=== PATIENT | male | born 1970 | race Caucasian/White ===

== ENCOUNTER 2022-10-01 10:35 | Inpatient (IN) | payer OTHER ==
[2022-10-01 11:18] VITALS: BMI 25.0
[2022-10-01] MEDS ORDERED: NALOXONE HCL (KLOXXADO) 8 MG SPRAY NS PRN (13:13)
[2022-10-01] MEDS ORDERED: BENZOCAINE/MENTHOL (CHLORASEPTIC ) LOZENGE MM PRN (13:13)
[2022-10-01] MEDS ORDERED: guaiFENesin 600 MG TABLET.ER (FP) PO PRN (13:13)
[2022-10-01] MEDS ORDERED: ONDANSETRON *ODT* 4 MG TABLET SL PRN (13:13)
[2022-10-01] MEDS ORDERED: MAG HYDROX/AL HYDROX/SIMETH 30 ML UNIT-DOSE CUP PO PRN (13:13)
[2022-10-01] MEDS ORDERED: NICOTINE 10 MG CARTRIDGE (INHALER) IH PRN (13:13)
[2022-10-01] MEDS ORDERED: ACETAMINOPHEN 325 MG TABLET (FP) PO PRN (13:13)
[2022-10-01] MEDS ORDERED: chlordiazePOXIDE HCL 25 MG CAPSULE PO PRN (13:13)
[2022-10-01] MEDS ORDERED: BENZONATATE 200 MG CAPSULE PO PRN (13:13)
[2022-10-01] MEDS ORDERED: MAGNESIUM HYDROX 2400MG/30ML ORAL SUSPENSION 30 ML CUP PO PRN (13:13)
[2022-10-01] MEDS ORDERED: DICYCLOMINE HCL 10 MG CAPSULE PO PRN (13:13)
[2022-10-01] MEDS ORDERED: LOPERAMIDE HCL 2 MG CAPSULE PO PRN (13:13)
[2022-10-01] MEDS ORDERED: IBUPROFEN 600 MG TABLET (FP) PO PRN (13:13)
[2022-10-01] MEDS ORDERED: POLYETHYLENE GLYCOL (HEALTHYLAX) 3350 17 GM PACKET PO PRN (13:13)
[2022-10-01] MEDS ORDERED: BISMUTH SUBSALICYLATE 524 MG/30 ML PO PRN (13:13)
[2022-10-01] MEDS ORDERED: NALOXONE HCL 0.4 MG/ML VIAL IM PRN (13:13)
[2022-10-01] MEDS ORDERED: IBUPROFEN 400 MG TABLET (FP) PO PRN (13:13)
[2022-10-01] MEDS: chlordiazePOXIDE HCL 25 MG CAPSULE PO SCH ×2 (17:51→22:39)
[2022-10-01] MEDS: THIAMINE HCL 100 MG TABLET (FP) PO SCH (22:39)
[2022-10-01] MEDS: MELATONIN 5 MG TABLETS PO SCH (22:39)
[2022-10-02] MEDS: chlordiazePOXIDE HCL 25 MG CAPSULE PO SCH ×4 (05:50→22:31)
[2022-10-02] MEDS: LEVOTHYROXINE NA 100 MCG TABLET (FP) PO SCH (05:50)
[2022-10-02] MEDS ORDERED: LEVOTHYROXINE SODIUM 150 MCG PO SCH (06:00)
[2022-10-02] MEDS ORDERED: methaDONE HCL 40 MG DISPERSABLE TABLET PO ONE (06:00)
[2022-10-02] MEDS: PRENATAL VITAMINS W/ FOLIC ACID TABLET (FP) PO SCH (10:52)
[2022-10-02] MEDS: NICOTINE 14 MG/24 HOURS TOPICAL PATCH TD SCH (10:54)
[2022-10-02 11:12] LABS: ALBUMIN 2.9 g/dl (3.4-5.0); BLOOD UREA NITROGEN 15.2 mg/dL (7-18); CALCIUM 9.1 mg/dL (8.5-10.1)
[2022-10-02 11:15] LABS: CREATININE 0.7 mg/dL (0.55-1.3); HEMATOCRIT 37.9 % (35.4-49); HEMOGLOBIN 12.9 GM/dL (11.7-16.9); MEAN PLT VOLUME 9.1 fl (7.5-11.1); PLATELET COUNT 198 10^3/uL (134-434); RBC 4.16 M/mm3 (4.00-5.60); RDW 12.5 % (11.9-15.9); WHITE BLOOD COUNT 5.1 K/mm3 (4.0-10.0)
[2022-10-02 11:16] LABS: TOT PROT 5.8 g/dl (6.4-8.2)
[2022-10-02 11:18] LABS: BILIRUBIN,TOTAL 0.3 mg/dL (0.2-1)
[2022-10-02] MEDS: SERTRALINE HCL 50 MG TABLET (FP) PO SCH (12:24)
[2022-10-02] MEDS: THIAMINE HCL 100 MG TABLET (FP) PO SCH (22:30)
[2022-10-02] MEDS: MELATONIN 5 MG TABLETS PO SCH (22:31)
[2022-10-02] MEDS: ARIPiprazole 10 MG TABLET PO SCH (22:31)
[2022-10-03] MEDS: chlordiazePOXIDE HCL 25 MG CAPSULE PO SCH ×4 (05:49→22:25)
[2022-10-03] MEDS: LEVOTHYROXINE NA 100 MCG TABLET (FP) PO SCH (06:29)
[2022-10-03] MEDS: SERTRALINE HCL 50 MG TABLET (FP) PO SCH (11:10)
[2022-10-03] MEDS: NICOTINE 14 MG/24 HOURS TOPICAL PATCH TD SCH (11:11)
[2022-10-03] MEDS: PRENATAL VITAMINS W/ FOLIC ACID TABLET (FP) PO SCH (11:11)
[2022-10-03] MEDS: methaDONE HCL 40 MG DISPERSABLE TABLET PO SCH (11:25)
[2022-10-03] MEDS: NICOTINE POLACRILEX 2 MG GUM BUC PRN ×2 (13:57→22:28)
[2022-10-03] MEDS: ARIPiprazole 10 MG TABLET PO SCH (22:24)
[2022-10-03] MEDS: THIAMINE HCL 100 MG TABLET (FP) PO SCH (22:24)
[2022-10-03] MEDS: MELATONIN 5 MG TABLETS PO SCH (22:25)
[2022-10-04] MEDS ORDERED: chlordiazePOXIDE HCL 10 MG CAPSULE PO PRN
[2022-10-04] MEDS: methaDONE HCL 40 MG DISPERSABLE TABLET PO SCH (05:53)
[2022-10-04] MEDS: chlordiazePOXIDE HCL 10 MG CAPSULE PO SCH ×4 (05:53→22:45)
[2022-10-04] MEDS: LEVOTHYROXINE NA 100 MCG TABLET (FP) PO SCH (05:58)
[2022-10-04] MEDS: NICOTINE 14 MG/24 HOURS TOPICAL PATCH TD SCH ×2 (10:25→10:32)
[2022-10-04] MEDS: PRENATAL VITAMINS W/ FOLIC ACID TABLET (FP) PO SCH (10:25)
[2022-10-04] MEDS: SERTRALINE HCL 50 MG TABLET (FP) PO SCH (10:26)
[2022-10-04] MEDS: NICOTINE POLACRILEX 2 MG GUM BUC PRN (10:29)
[2022-10-04] MEDS: MELATONIN 5 MG TABLETS PO SCH (22:44)
[2022-10-04] MEDS: hydrOXYzine PAMOATE 25 MG CAPSULE (FP) PO PRN (22:44)
[2022-10-04] MEDS: ARIPiprazole 10 MG TABLET PO SCH (22:45)
[2022-10-04] MEDS: THIAMINE HCL 100 MG TABLET (FP) PO SCH (22:45)
[2022-10-04] MEDS: METHOCARBAMOL 500 MG TABLET PO PRN (22:45)
[2022-10-05] MEDS: chlordiazePOXIDE HCL 10 MG CAPSULE PO SCH ×2 (06:03→18:50)
[2022-10-05] MEDS: methaDONE HCL 40 MG DISPERSABLE TABLET PO SCH (06:04)
[2022-10-05] MEDS: LEVOTHYROXINE NA 100 MCG TABLET (FP) PO SCH (06:09)
[2022-10-05] MEDS: PRENATAL VITAMINS W/ FOLIC ACID TABLET (FP) PO SCH (10:18)
[2022-10-05] MEDS: SERTRALINE HCL 50 MG TABLET (FP) PO SCH (10:18)
[2022-10-05] MEDS: NICOTINE 14 MG/24 HOURS TOPICAL PATCH TD SCH (10:19)
[2022-10-05] MEDS: METHOCARBAMOL 500 MG TABLET PO PRN (22:20)
[2022-10-05] MEDS: MELATONIN 5 MG TABLETS PO SCH (22:20)
[2022-10-05] MEDS: hydrOXYzine PAMOATE 25 MG CAPSULE (FP) PO PRN (22:20)
[2022-10-05] MEDS: ARIPiprazole 10 MG TABLET PO SCH (22:20)
[2022-10-05] MEDS: THIAMINE HCL 100 MG TABLET (FP) PO SCH (22:20)
[2022-10-06] MEDS ORDERED: chlordiazePOXIDE HCL 10 MG CAPSULE PO ONE (05:00)
[2022-10-06] MEDS: methaDONE HCL 40 MG DISPERSABLE TABLET PO SCH (05:48)
[2022-10-06] MEDS: LEVOTHYROXINE NA 100 MCG TABLET (FP) PO SCH (05:49)
[2022-10-06 06:20] VITALS: PULSE 63
[2022-10-06] MEDS: NICOTINE 14 MG/24 HOURS TOPICAL PATCH TD SCH (10:42)
[2022-10-06] MEDS: PRENATAL VITAMINS W/ FOLIC ACID TABLET (FP) PO SCH (10:42)
[2022-10-06] MEDS: SERTRALINE HCL 50 MG TABLET (FP) PO SCH (10:43)
[2022-10-06 11:30] VITALS: BP 110/60; RESP 18; TEMP 98.2
== END 2022-10-06 10:43 | disposition home or self-care (01) | DRG 773 ==
LOC: YASAS 10:35 → Y3N 13:36
PROVIDERS: ADMIT Allergy & Immunology; ATTEND Surgery
PROC: HZ2ZZZZ Detoxification Services for Substance Abuse Treatment (ICD-10-PCS; principal; 2022-10-01)
DX: F11.23 Opioid dependence with withdrawal (principal); F10.230 Alcohol dependence with withdrawal, uncomplicated; F17.210 Nicotine dependence, cigarettes, uncomplicated; F31.9 Bipolar disorder, unspecified; F25.9 Schizoaffective disorder, unspecified; E03.9 Hypothyroidism, unspecified; J45.20 Mild intermittent asthma, uncomplicated; M54.50 Low back pain, unspecified; G89.29 Other chronic pain; Z86.19 Personal history of other infectious and parasitic diseases
CPT/HCPCS: 36415; 80053; 82962; 84443; 85027; 86780; 87811; 93005; 93010; C9803-CS; U0003; U0005

== ENCOUNTER 2022-10-06 11:59 | Inpatient (IN) | payer OTHER ==
[2022-10-06 13:45] VITALS: BMI 26.9
[2022-10-06] MEDS ORDERED: guaiFENesin 600 MG TABLET.ER (FP) PO PRN (14:48)
[2022-10-06] MEDS ORDERED: BENZONATATE 200 MG CAPSULE PO PRN (14:48)
[2022-10-06] MEDS ORDERED: AMMONIUM LACTATE 12% LOTION 225 GM BOTTLE TP PRN (14:48)
[2022-10-06] MEDS ORDERED: POLYETHYLENE GLYCOL (HEALTHYLAX) 3350 17 GM PACKET PO PRN (14:48)
[2022-10-06] MEDS ORDERED: MAGNESIUM HYDROX 2400MG/30ML ORAL SUSPENSION 30 ML CUP PO PRN (14:48)
[2022-10-06] MEDS ORDERED: IBUPROFEN 400 MG TABLET (FP) PO PRN (14:48)
[2022-10-06] MEDS ORDERED: COLLOIDAL OATMEAL 1 BAR EACH TP PRN (14:48)
[2022-10-06] MEDS ORDERED: IBUPROFEN 600 MG TABLET (FP) PO PRN (14:48)
[2022-10-06] MEDS ORDERED: NALOXONE HCL 0.4 MG/ML VIAL IVPUSH PRN (14:48)
[2022-10-06] MEDS ORDERED: LOPERAMIDE HCL 2 MG CAPSULE PO PRN (14:48)
[2022-10-06] MEDS ORDERED: NALOXONE HCL (KLOXXADO) 8 MG SPRAY NS PRN (14:48)
[2022-10-06] MEDS ORDERED: METHOCARBAMOL 500 MG TABLET PO PRN (14:48)
[2022-10-06] MEDS ORDERED: hydrOXYzine PAMOATE 25 MG CAPSULE (FP) PO PRN (14:48)
[2022-10-06] MEDS ORDERED: BENZOCAINE/MENTHOL (CHLORASEPTIC ) LOZENGE MM PRN (14:48)
[2022-10-06] MEDS ORDERED: ACETAMINOPHEN 325 MG TABLET (FP) PO PRN (14:48)
[2022-10-06] MEDS: MELATONIN 5 MG TABLETS PO SCH (21:23)
[2022-10-06] MEDS: THIAMINE HCL 100 MG TABLET (FP) PO SCH (21:23)
[2022-10-06] MEDS: ARIPiprazole 10 MG TABLET PO SCH (21:24)
[2022-10-07] MEDS: methaDONE HCL 40 MG DISPERSABLE TABLET PO SCH (06:50)
[2022-10-07] MEDS ORDERED: LEVOTHYROXINE NA 150 MCG TABLET PO SCH (07:00)
[2022-10-07] MEDS ORDERED: LEVOTHYROXINE SODIUM 150 MCG PO SCH (07:00)
[2022-10-07] MEDS: LEVOTHYROXINE NA 75 MCG TABLET (FP) PO SCH (09:41)
[2022-10-07] MEDS: PRENATAL VITAMINS W/ FOLIC ACID TABLET (FP) PO SCH (09:41)
[2022-10-07] MEDS ORDERED: PATIENT'S OWN MEDICATION (NON-FORMULARY) (Sertraline Hcl [Sertraline Hcl] 100 MG Tablet) PO SCH (10:00)
[2022-10-07] MEDS ORDERED: methaDONE HCL 40 MG DISPERSABLE TABLET PO SCH (10:00)
[2022-10-07] MEDS ORDERED: SERTRALINE HCL 50 MG TABLET (FP) PO SCH (10:00)
[2022-10-07] MEDS: NICOTINE POLACRILEX 2 MG GUM BUC PRN (10:04)
[2022-10-07] MEDS: THIAMINE HCL 100 MG TABLET (FP) PO SCH (22:29)
[2022-10-07] MEDS: MELATONIN 5 MG TABLETS PO SCH (22:29)
[2022-10-07] MEDS: ARIPiprazole 10 MG TABLET PO SCH (22:29)
[2022-10-08] MEDS: methaDONE HCL 40 MG DISPERSABLE TABLET PO SCH (06:35)
[2022-10-08] MEDS: SERTRALINE HCL 50 MG TABLET (FP) PO SCH (06:35)
[2022-10-08] MEDS: LEVOTHYROXINE NA 75 MCG TABLET (FP) PO SCH (06:36)
[2022-10-08] MEDS: PRENATAL VITAMINS W/ FOLIC ACID TABLET (FP) PO SCH (10:01)
[2022-10-08] MEDS: NICOTINE POLACRILEX 2 MG GUM BUC PRN ×2 (12:58→18:38)
[2022-10-08] MEDS: ARIPiprazole 10 MG TABLET PO SCH (21:22)
[2022-10-08] MEDS: THIAMINE HCL 100 MG TABLET (FP) PO SCH (21:22)
[2022-10-08] MEDS: MELATONIN 5 MG TABLETS PO SCH (21:22)
[2022-10-09] MEDS: SERTRALINE HCL 50 MG TABLET (FP) PO SCH (06:58)
[2022-10-09] MEDS: methaDONE HCL 40 MG DISPERSABLE TABLET PO SCH (06:58)
[2022-10-09] MEDS: LEVOTHYROXINE NA 75 MCG TABLET (FP) PO SCH (06:59)
[2022-10-09] MEDS: PRENATAL VITAMINS W/ FOLIC ACID TABLET (FP) PO SCH (10:46)
[2022-10-09] MEDS: NICOTINE POLACRILEX 2 MG GUM BUC PRN ×4 (11:59→21:16)
[2022-10-09] MEDS: MELATONIN 5 MG TABLETS PO SCH (21:14)
[2022-10-09] MEDS: ARIPiprazole 10 MG TABLET PO SCH (21:14)
[2022-10-09] MEDS: THIAMINE HCL 100 MG TABLET (FP) PO SCH (21:14)
[2022-10-10] MEDS: SERTRALINE HCL 50 MG TABLET (FP) PO SCH (06:31)
[2022-10-10] MEDS: LEVOTHYROXINE NA 75 MCG TABLET (FP) PO SCH (06:32)
[2022-10-10] MEDS: methaDONE HCL 40 MG DISPERSABLE TABLET PO SCH (06:32)
[2022-10-10] MEDS: NICOTINE POLACRILEX 2 MG GUM BUC PRN ×5 (06:36→21:22)
[2022-10-10] MEDS: PRENATAL VITAMINS W/ FOLIC ACID TABLET (FP) PO SCH (09:44)
[2022-10-10] MEDS: ARIPiprazole 10 MG TABLET PO SCH (21:21)
[2022-10-10] MEDS: MELATONIN 5 MG TABLETS PO SCH (21:21)
[2022-10-10] MEDS: THIAMINE HCL 100 MG TABLET (FP) PO SCH (21:21)
[2022-10-11] MEDS: SERTRALINE HCL 50 MG TABLET (FP) PO SCH (06:25)
[2022-10-11] MEDS: methaDONE HCL 40 MG DISPERSABLE TABLET PO SCH (06:25)
[2022-10-11] MEDS: NICOTINE POLACRILEX 2 MG GUM BUC PRN ×3 (06:26→21:12)
[2022-10-11] MEDS ORDERED: LEVOTHYROXINE 100 MCG, LEVOTHYROXINE 50 MCG PO ONE (08:30)
[2022-10-11] MEDS: PRENATAL VITAMINS W/ FOLIC ACID TABLET (FP) PO SCH (09:56)
[2022-10-11] MEDS: NICOTINE 7 MG/24 HOURS TOPICAL PATCH TD PRN (09:58)
[2022-10-11] MEDS: ARIPiprazole 10 MG TABLET PO SCH (21:11)
[2022-10-11] MEDS: MELATONIN 5 MG TABLETS PO SCH (21:11)
[2022-10-11] MEDS: THIAMINE HCL 100 MG TABLET (FP) PO SCH (21:11)
[2022-10-12] MEDS: SERTRALINE HCL 50 MG TABLET (FP) PO SCH (06:26)
[2022-10-12] MEDS: methaDONE HCL 40 MG DISPERSABLE TABLET PO SCH (06:26)
[2022-10-12] MEDS: NICOTINE POLACRILEX 2 MG GUM BUC PRN ×2 (06:27→18:48)
[2022-10-12] MEDS ORDERED: LEVOTHYROXINE 100 MCG, LEVOTHYROXINE 50 MCG PO SCH (07:00)
[2022-10-12] MEDS: NICOTINE 7 MG/24 HOURS TOPICAL PATCH TD PRN (09:55)
[2022-10-12] MEDS: PRENATAL VITAMINS W/ FOLIC ACID TABLET (FP) PO SCH (09:55)
[2022-10-12] MEDS: MELATONIN 5 MG TABLETS PO SCH (21:21)
[2022-10-12] MEDS: ARIPiprazole 10 MG TABLET PO SCH (21:21)
[2022-10-12] MEDS: THIAMINE HCL 100 MG TABLET (FP) PO SCH (21:21)
[2022-10-13] MEDS ORDERED: LEVOTHYROXINE NA 100 MCG TABLET (FP) PO SCH (06:00)
[2022-10-13] MEDS: methaDONE HCL 40 MG DISPERSABLE TABLET PO SCH (06:23)
[2022-10-13] MEDS: LEVOTHYROXINE 100 MCG, LEVOTHYROXINE 75 MCG PO SCH (06:24)
[2022-10-13] MEDS: NICOTINE 7 MG/24 HOURS TOPICAL PATCH TD PRN (06:27)
[2022-10-13] MEDS: NICOTINE POLACRILEX 2 MG GUM BUC PRN ×3 (06:28→18:52)
[2022-10-13] MEDS: SERTRALINE HCL 50 MG TABLET (FP) PO SCH (06:59)
[2022-10-13] MEDS: PRENATAL VITAMINS W/ FOLIC ACID TABLET (FP) PO SCH (10:01)
[2022-10-13] MEDS: NICOTINE 10 MG CARTRIDGE (INHALER) IH SCH (12:53)
[2022-10-13] MEDS: THIAMINE HCL 100 MG TABLET (FP) PO SCH (21:11)
[2022-10-13] MEDS: ARIPiprazole 10 MG TABLET PO SCH (21:12)
[2022-10-13] MEDS: MELATONIN 5 MG TABLETS PO SCH (21:12)
[2022-10-14] MEDS: methaDONE HCL 40 MG DISPERSABLE TABLET PO SCH (06:30)
[2022-10-14] MEDS: SERTRALINE HCL 50 MG TABLET (FP) PO SCH (06:31)
[2022-10-14] MEDS: LEVOTHYROXINE 100 MCG, LEVOTHYROXINE 75 MCG PO SCH (06:31)
[2022-10-14] MEDS: NICOTINE 10 MG CARTRIDGE (INHALER) IH SCH (09:40)
[2022-10-14] MEDS: PRENATAL VITAMINS W/ FOLIC ACID TABLET (FP) PO SCH (09:40)
[2022-10-14] MEDS: NICOTINE POLACRILEX 2 MG GUM BUC PRN (19:56)
[2022-10-14] MEDS: ARIPiprazole 10 MG TABLET PO SCH (21:42)
[2022-10-14] MEDS: MELATONIN 5 MG TABLETS PO SCH (21:43)
[2022-10-14] MEDS: THIAMINE HCL 100 MG TABLET (FP) PO SCH (21:43)
[2022-10-14] MEDS: MAG HYDROX/AL HYDROX/SIMETH 30 ML UNIT-DOSE CUP PO PRN (21:44)
[2022-10-15] MEDS: SERTRALINE HCL 50 MG TABLET (FP) PO SCH (05:57)
[2022-10-15] MEDS: LEVOTHYROXINE 100 MCG, LEVOTHYROXINE 75 MCG PO SCH (05:57)
[2022-10-15] MEDS: methaDONE HCL 40 MG DISPERSABLE TABLET PO SCH (05:57)
[2022-10-15] MEDS: NICOTINE POLACRILEX 2 MG GUM BUC PRN ×3 (05:58→21:06)
[2022-10-15] MEDS: PRENATAL VITAMINS W/ FOLIC ACID TABLET (FP) PO SCH (09:58)
[2022-10-15] MEDS: NICOTINE 10 MG CARTRIDGE (INHALER) IH SCH (09:58)
[2022-10-15] MEDS: NICOTINE 7 MG/24 HOURS TOPICAL PATCH TD PRN (09:58)
[2022-10-15] MEDS: MELATONIN 5 MG TABLETS PO SCH (21:06)
[2022-10-15] MEDS: ARIPiprazole 10 MG TABLET PO SCH (21:06)
[2022-10-15] MEDS: THIAMINE HCL 100 MG TABLET (FP) PO SCH (21:06)
[2022-10-15] MEDS: MAG HYDROX/AL HYDROX/SIMETH 30 ML UNIT-DOSE CUP PO PRN (21:07)
[2022-10-16] MEDS: methaDONE HCL 40 MG DISPERSABLE TABLET PO SCH (05:59)
[2022-10-16] MEDS: SERTRALINE HCL 50 MG TABLET (FP) PO SCH (06:00)
[2022-10-16] MEDS: LEVOTHYROXINE 100 MCG, LEVOTHYROXINE 75 MCG PO SCH (06:00)
[2022-10-16] MEDS: NICOTINE POLACRILEX 2 MG GUM BUC PRN ×3 (09:43→19:30)
[2022-10-16] MEDS: NICOTINE 10 MG CARTRIDGE (INHALER) IH SCH ×2 (09:43→13:08)
[2022-10-16] MEDS: NICOTINE 7 MG/24 HOURS TOPICAL PATCH TD PRN (09:43)
[2022-10-16] MEDS: PRENATAL VITAMINS W/ FOLIC ACID TABLET (FP) PO SCH (09:43)
[2022-10-16] MEDS: THIAMINE HCL 100 MG TABLET (FP) PO SCH (21:54)
[2022-10-16] MEDS: MELATONIN 5 MG TABLETS PO SCH (21:54)
[2022-10-16] MEDS: ARIPiprazole 10 MG TABLET PO SCH (21:54)
[2022-10-17] MEDS: NICOTINE 7 MG/24 HOURS TOPICAL PATCH TD PRN (06:04)
[2022-10-17] MEDS: LEVOTHYROXINE 100 MCG, LEVOTHYROXINE 75 MCG PO SCH (06:06)
[2022-10-17] MEDS: methaDONE HCL 40 MG DISPERSABLE TABLET PO SCH (06:06)
[2022-10-17] MEDS: SERTRALINE HCL 50 MG TABLET (FP) PO SCH (06:06)
[2022-10-17] MEDS: NICOTINE 10 MG CARTRIDGE (INHALER) IH SCH (10:16)
[2022-10-17] MEDS: PRENATAL VITAMINS W/ FOLIC ACID TABLET (FP) PO SCH (10:17)
[2022-10-17] MEDS: MAG HYDROX/AL HYDROX/SIMETH 30 ML UNIT-DOSE CUP PO PRN ×2 (10:18→21:53)
[2022-10-17] MEDS: NICOTINE POLACRILEX 2 MG GUM BUC PRN (13:54)
[2022-10-17] MEDS: ARIPiprazole 10 MG TABLET PO SCH (21:51)
[2022-10-17] MEDS: THIAMINE HCL 100 MG TABLET (FP) PO SCH (21:51)
[2022-10-17] MEDS: MELATONIN 5 MG TABLETS PO SCH (21:51)
[2022-10-18] MEDS: methaDONE HCL 40 MG DISPERSABLE TABLET PO SCH (06:16)
[2022-10-18] MEDS: SERTRALINE HCL 50 MG TABLET (FP) PO SCH (06:16)
[2022-10-18] MEDS: LEVOTHYROXINE 100 MCG, LEVOTHYROXINE 75 MCG PO SCH (06:16)
[2022-10-18] MEDS: NICOTINE POLACRILEX 2 MG GUM BUC PRN ×4 (06:17→21:23)
[2022-10-18] MEDS: PRENATAL VITAMINS W/ FOLIC ACID TABLET (FP) PO SCH (09:47)
[2022-10-18] MEDS: NICOTINE 10 MG CARTRIDGE (INHALER) IH SCH (09:47)
[2022-10-18] MEDS: NICOTINE 7 MG/24 HOURS TOPICAL PATCH TD PRN (09:47)
[2022-10-18] MEDS: ARIPiprazole 10 MG TABLET PO SCH (21:23)
[2022-10-18] MEDS: THIAMINE HCL 100 MG TABLET (FP) PO SCH (21:23)
[2022-10-18] MEDS: MELATONIN 5 MG TABLETS PO SCH (21:23)
[2022-10-19] MEDS: LEVOTHYROXINE 100 MCG, LEVOTHYROXINE 75 MCG PO SCH (06:27)
[2022-10-19] MEDS: methaDONE HCL 40 MG DISPERSABLE TABLET PO SCH (06:27)
[2022-10-19] MEDS: SERTRALINE HCL 50 MG TABLET (FP) PO SCH (06:28)
[2022-10-19] MEDS: NICOTINE POLACRILEX 2 MG GUM BUC PRN ×2 (06:29→16:45)
[2022-10-19] MEDS: NICOTINE 7 MG/24 HOURS TOPICAL PATCH TD PRN (09:57)
[2022-10-19] MEDS: NICOTINE 10 MG CARTRIDGE (INHALER) IH SCH (09:57)
[2022-10-19] MEDS: PRENATAL VITAMINS W/ FOLIC ACID TABLET (FP) PO SCH (09:57)
[2022-10-19] MEDS: ARIPiprazole 10 MG TABLET PO SCH (21:14)
[2022-10-19] MEDS: THIAMINE HCL 100 MG TABLET (FP) PO SCH (21:14)
[2022-10-19] MEDS: MELATONIN 5 MG TABLETS PO SCH (21:15)
[2022-10-20] MEDS: NICOTINE POLACRILEX 2 MG GUM BUC PRN ×2 (06:13→16:47)
[2022-10-20] MEDS: methaDONE HCL 40 MG DISPERSABLE TABLET PO SCH (06:14)
[2022-10-20] MEDS: SERTRALINE HCL 50 MG TABLET (FP) PO SCH (06:14)
[2022-10-20] MEDS: LEVOTHYROXINE 100 MCG, LEVOTHYROXINE 75 MCG PO SCH (06:14)
[2022-10-20] MEDS: NICOTINE 10 MG CARTRIDGE (INHALER) IH SCH (09:59)
[2022-10-20] MEDS: NICOTINE 7 MG/24 HOURS TOPICAL PATCH TD PRN (10:00)
[2022-10-20] MEDS: PRENATAL VITAMINS W/ FOLIC ACID TABLET (FP) PO SCH (10:00)
[2022-10-20] MEDS: ARIPiprazole 10 MG TABLET PO SCH (21:32)
[2022-10-20] MEDS: THIAMINE HCL 100 MG TABLET (FP) PO SCH (21:32)
[2022-10-20] MEDS: MELATONIN 5 MG TABLETS PO SCH (21:32)
[2022-10-21] MEDS: LEVOTHYROXINE 100 MCG, LEVOTHYROXINE 75 MCG PO SCH (06:25)
[2022-10-21] MEDS: methaDONE HCL 40 MG DISPERSABLE TABLET PO SCH (06:25)
[2022-10-21] MEDS: SERTRALINE HCL 50 MG TABLET (FP) PO SCH (06:26)
[2022-10-21] MEDS: NICOTINE 10 MG CARTRIDGE (INHALER) IH SCH (10:15)
[2022-10-21] MEDS: PRENATAL VITAMINS W/ FOLIC ACID TABLET (FP) PO SCH (10:15)
[2022-10-21] MEDS: NICOTINE 7 MG/24 HOURS TOPICAL PATCH TD PRN (10:15)
[2022-10-21] MEDS: NICOTINE POLACRILEX 2 MG GUM BUC PRN ×2 (10:17→16:22)
[2022-10-21] MEDS: ARIPiprazole 10 MG TABLET PO SCH (21:08)
[2022-10-21] MEDS: THIAMINE HCL 100 MG TABLET (FP) PO SCH (21:08)
[2022-10-21] MEDS: MELATONIN 5 MG TABLETS PO SCH (21:08)
[2022-10-22] MEDS: SERTRALINE HCL 50 MG TABLET (FP) PO SCH (05:41)
[2022-10-22] MEDS: LEVOTHYROXINE 100 MCG, LEVOTHYROXINE 75 MCG PO SCH (05:41)
[2022-10-22] MEDS: methaDONE HCL 40 MG DISPERSABLE TABLET PO SCH (05:41)
[2022-10-22] MEDS: NICOTINE POLACRILEX 2 MG GUM BUC PRN ×2 (05:44→16:41)
[2022-10-22] MEDS: PRENATAL VITAMINS W/ FOLIC ACID TABLET (FP) PO SCH (09:38)
[2022-10-22] MEDS: NICOTINE 10 MG CARTRIDGE (INHALER) IH SCH (09:38)
[2022-10-22] MEDS: NICOTINE 7 MG/24 HOURS TOPICAL PATCH TD PRN (09:38)
[2022-10-22] MEDS: THIAMINE HCL 100 MG TABLET (FP) PO SCH (22:21)
[2022-10-22] MEDS: ARIPiprazole 10 MG TABLET PO SCH (22:22)
[2022-10-22] MEDS: MELATONIN 5 MG TABLETS PO SCH (22:22)
[2022-10-23] MEDS: LEVOTHYROXINE 100 MCG, LEVOTHYROXINE 75 MCG PO SCH (05:48)
[2022-10-23] MEDS: SERTRALINE HCL 50 MG TABLET (FP) PO SCH (05:48)
[2022-10-23] MEDS: methaDONE HCL 40 MG DISPERSABLE TABLET PO SCH (05:48)
[2022-10-23] MEDS: NICOTINE POLACRILEX 2 MG GUM BUC PRN ×2 (06:44→21:08)
[2022-10-23] MEDS: PRENATAL VITAMINS W/ FOLIC ACID TABLET (FP) PO SCH (10:03)
[2022-10-23] MEDS: NICOTINE 10 MG CARTRIDGE (INHALER) IH SCH (10:03)
[2022-10-23] MEDS: NICOTINE 7 MG/24 HOURS TOPICAL PATCH TD PRN (10:04)
[2022-10-23] MEDS: ARIPiprazole 10 MG TABLET PO SCH (21:07)
[2022-10-23] MEDS: THIAMINE HCL 100 MG TABLET (FP) PO SCH (21:09)
[2022-10-23] MEDS: MELATONIN 5 MG TABLETS PO SCH (21:09)
[2022-10-24] MEDS: methaDONE HCL 40 MG DISPERSABLE TABLET PO SCH (05:53)
[2022-10-24] MEDS: LEVOTHYROXINE 100 MCG, LEVOTHYROXINE 75 MCG PO SCH (05:54)
[2022-10-24] MEDS: SERTRALINE HCL 50 MG TABLET (FP) PO SCH (05:54)
[2022-10-24] MEDS: NICOTINE POLACRILEX 2 MG GUM BUC PRN ×5 (05:55→21:19)
[2022-10-24] MEDS: NICOTINE 10 MG CARTRIDGE (INHALER) IH SCH (09:47)
[2022-10-24] MEDS: PRENATAL VITAMINS W/ FOLIC ACID TABLET (FP) PO SCH (09:47)
[2022-10-24] MEDS: NICOTINE 7 MG/24 HOURS TOPICAL PATCH TD PRN (09:47)
[2022-10-24] MEDS: THIAMINE HCL 100 MG TABLET (FP) PO SCH (21:19)
[2022-10-24] MEDS: ARIPiprazole 10 MG TABLET PO SCH (21:19)
[2022-10-24] MEDS: MELATONIN 5 MG TABLETS PO SCH (21:19)
[2022-10-25] MEDS: methaDONE HCL 40 MG DISPERSABLE TABLET PO SCH (05:54)
[2022-10-25] MEDS: LEVOTHYROXINE 100 MCG, LEVOTHYROXINE 75 MCG PO SCH (05:55)
[2022-10-25] MEDS: SERTRALINE HCL 50 MG TABLET (FP) PO SCH (05:55)
[2022-10-25] MEDS: PRENATAL VITAMINS W/ FOLIC ACID TABLET (FP) PO SCH (10:11)
[2022-10-25] MEDS: NICOTINE 7 MG/24 HOURS TOPICAL PATCH TD PRN (10:11)
[2022-10-25] MEDS: NICOTINE POLACRILEX 2 MG GUM BUC PRN ×2 (10:11→18:07)
[2022-10-25] MEDS: NICOTINE 10 MG CARTRIDGE (INHALER) IH SCH (10:13)
[2022-10-25] MEDS: THIAMINE HCL 100 MG TABLET (FP) PO SCH (21:11)
[2022-10-25] MEDS: ARIPiprazole 10 MG TABLET PO SCH (21:12)
[2022-10-25] MEDS: MELATONIN 5 MG TABLETS PO SCH (21:12)
[2022-10-26] MEDS: methaDONE HCL 40 MG DISPERSABLE TABLET PO SCH (06:29)
[2022-10-26] MEDS: SERTRALINE HCL 50 MG TABLET (FP) PO SCH (06:30)
[2022-10-26] MEDS: LEVOTHYROXINE 100 MCG, LEVOTHYROXINE 75 MCG PO SCH (06:30)
[2022-10-26] MEDS: NICOTINE POLACRILEX 2 MG GUM BUC PRN ×3 (06:31→21:14)
[2022-10-26] MEDS: NICOTINE 10 MG CARTRIDGE (INHALER) IH SCH (10:07)
[2022-10-26] MEDS: PRENATAL VITAMINS W/ FOLIC ACID TABLET (FP) PO SCH (10:07)
[2022-10-26] MEDS: NICOTINE 7 MG/24 HOURS TOPICAL PATCH TD PRN (10:07)
[2022-10-26] MEDS: ARIPiprazole 10 MG TABLET PO SCH (21:13)
[2022-10-26] MEDS: THIAMINE HCL 100 MG TABLET (FP) PO SCH (21:13)
[2022-10-26] MEDS: MELATONIN 5 MG TABLETS PO SCH (21:14)
[2022-10-27] MEDS: LEVOTHYROXINE 100 MCG, LEVOTHYROXINE 75 MCG PO SCH (06:01)
[2022-10-27] MEDS: SERTRALINE HCL 50 MG TABLET (FP) PO SCH (07:26)
[2022-10-27] MEDS: methaDONE HCL 40 MG DISPERSABLE TABLET PO SCH (07:26)
[2022-10-27] MEDS: PRENATAL VITAMINS W/ FOLIC ACID TABLET (FP) PO SCH (09:57)
[2022-10-27] MEDS: NICOTINE 7 MG/24 HOURS TOPICAL PATCH TD PRN (09:58)
[2022-10-27] MEDS: NICOTINE 10 MG CARTRIDGE (INHALER) IH SCH (10:12)
[2022-10-27 11:08] LABS: BASO % 0.2 % (0-2.0); EOS % 12.4 % (0-4.5); HEMATOCRIT 39.4 % (35.4-49); HEMOGLOBIN 13.4 GM/dL (11.7-16.9); MCHC 34.1 g/dl (32.0-35.9); MEAN CELL VOLUME 90.8 fl (80-96); MONO % 5.3 % (3.8-10.2); NEUT % 55.1 % (42.8-82.8); PLATELET COUNT 225 10^3/uL (134-434); RBC 4.34 M/mm3 (4.00-5.60); RDW 13.6 % (11.9-15.9); WHITE BLOOD COUNT 6.5 K/mm3 (4.0-10.0)
[2022-10-27 11:09] LABS: INR 0.97 (0.83-1.09); PROTHROMBIN TIME (PATIENT) 11.2 SEC (9.7-13.0)
[2022-10-27 11:12] LABS: CALCIUM 9.3 mg/dL (8.5-10.1)
[2022-10-27 11:13] LABS: ALBUMIN 3.3 g/dl (3.4-5.0)
[2022-10-27 11:16] LABS: CREATININE 0.9 mg/dL (0.55-1.3)
[2022-10-27 11:17] LABS: BILIRUBIN,TOTAL 0.4 mg/dL (0.2-1)
[2022-10-27 11:18] LABS: TOT PROT 6.6 g/dl (6.4-8.2)
[2022-10-27] MEDS: NICOTINE POLACRILEX 2 MG GUM BUC PRN ×2 (13:19→16:02)
[2022-10-27] MEDS: MELATONIN 5 MG TABLETS PO SCH (21:34)
[2022-10-27] MEDS: THIAMINE HCL 100 MG TABLET (FP) PO SCH (21:34)
[2022-10-27] MEDS: ARIPiprazole 10 MG TABLET PO SCH (21:34)
[2022-10-28] MEDS: LEVOTHYROXINE 100 MCG, LEVOTHYROXINE 75 MCG PO SCH (05:59)
[2022-10-28] MEDS: methaDONE HCL 40 MG DISPERSABLE TABLET PO SCH (06:32)
[2022-10-28] MEDS: SERTRALINE HCL 50 MG TABLET (FP) PO SCH (06:32)
[2022-10-28] MEDS: NICOTINE POLACRILEX 2 MG GUM BUC PRN ×4 (06:34→21:36)
[2022-10-28] MEDS: PRENATAL VITAMINS W/ FOLIC ACID TABLET (FP) PO SCH (09:59)
[2022-10-28] MEDS: NICOTINE 10 MG CARTRIDGE (INHALER) IH SCH (09:59)
[2022-10-28] MEDS: NICOTINE 7 MG/24 HOURS TOPICAL PATCH TD PRN (10:00)
[2022-10-28] MEDS: THIAMINE HCL 100 MG TABLET (FP) PO SCH (21:36)
[2022-10-28] MEDS: ARIPiprazole 10 MG TABLET PO SCH (21:36)
[2022-10-28] MEDS: MELATONIN 5 MG TABLETS PO SCH (21:36)
[2022-10-29] MEDS: LEVOTHYROXINE 100 MCG, LEVOTHYROXINE 75 MCG PO SCH (05:57)
[2022-10-29] MEDS: methaDONE HCL 40 MG DISPERSABLE TABLET PO SCH (06:24)
[2022-10-29] MEDS: SERTRALINE HCL 50 MG TABLET (FP) PO SCH (06:24)
[2022-10-29] MEDS: NICOTINE POLACRILEX 2 MG GUM BUC PRN ×3 (06:26→16:38)
[2022-10-29] MEDS: PRENATAL VITAMINS W/ FOLIC ACID TABLET (FP) PO SCH (10:11)
[2022-10-29] MEDS: NICOTINE 10 MG CARTRIDGE (INHALER) IH SCH (10:11)
[2022-10-29] MEDS: NICOTINE 7 MG/24 HOURS TOPICAL PATCH TD PRN (10:12)
[2022-10-29] MEDS: ARIPiprazole 10 MG TABLET PO SCH (21:17)
[2022-10-29] MEDS: MELATONIN 5 MG TABLETS PO SCH (21:17)
[2022-10-29] MEDS: THIAMINE HCL 100 MG TABLET (FP) PO SCH (21:17)
[2022-10-30] MEDS: LEVOTHYROXINE 100 MCG, LEVOTHYROXINE 75 MCG PO SCH (05:44)
[2022-10-30] MEDS: SERTRALINE HCL 50 MG TABLET (FP) PO SCH (05:44)
[2022-10-30] MEDS: methaDONE HCL 40 MG DISPERSABLE TABLET PO SCH (06:21)
[2022-10-30] MEDS: NICOTINE POLACRILEX 2 MG GUM BUC PRN ×4 (06:22→21:25)
[2022-10-30] MEDS: PRENATAL VITAMINS W/ FOLIC ACID TABLET (FP) PO SCH (10:36)
[2022-10-30] MEDS: NICOTINE 7 MG/24 HOURS TOPICAL PATCH TD PRN (10:36)
[2022-10-30] MEDS: NICOTINE 10 MG CARTRIDGE (INHALER) IH SCH (10:36)
[2022-10-30] MEDS: MELATONIN 5 MG TABLETS PO SCH (21:24)
[2022-10-30] MEDS: THIAMINE HCL 100 MG TABLET (FP) PO SCH (21:25)
[2022-10-30] MEDS: ARIPiprazole 10 MG TABLET PO SCH (21:25)
[2022-10-31] MEDS: SERTRALINE HCL 50 MG TABLET (FP) PO SCH (06:06)
[2022-10-31] MEDS: methaDONE HCL 40 MG DISPERSABLE TABLET PO SCH (06:06)
[2022-10-31] MEDS: LEVOTHYROXINE 100 MCG, LEVOTHYROXINE 75 MCG PO SCH (06:06)
[2022-10-31] MEDS: NICOTINE POLACRILEX 2 MG GUM BUC PRN ×2 (06:37→12:42)
[2022-10-31] MEDS: PRENATAL VITAMINS W/ FOLIC ACID TABLET (FP) PO SCH (10:10)
[2022-10-31] MEDS: NICOTINE 10 MG CARTRIDGE (INHALER) IH SCH (10:10)
[2022-10-31] MEDS: NICOTINE 7 MG/24 HOURS TOPICAL PATCH TD PRN (10:10)
[2022-10-31] MEDS: THIAMINE HCL 100 MG TABLET (FP) PO SCH (21:39)
[2022-10-31] MEDS: MELATONIN 5 MG TABLETS PO SCH (21:39)
[2022-10-31] MEDS: ARIPiprazole 10 MG TABLET PO SCH (21:39)
[2022-11-01] MEDS: LEVOTHYROXINE 100 MCG, LEVOTHYROXINE 75 MCG PO SCH (05:53)
[2022-11-01] MEDS: SERTRALINE HCL 50 MG TABLET (FP) PO SCH (06:29)
[2022-11-01] MEDS: methaDONE HCL 40 MG DISPERSABLE TABLET PO SCH (06:29)
[2022-11-01] MEDS: NICOTINE POLACRILEX 2 MG GUM BUC PRN ×4 (06:30→21:24)
[2022-11-01 06:54] VITALS: RESP 18
[2022-11-01] MEDS: NICOTINE 10 MG CARTRIDGE (INHALER) IH SCH (09:59)
[2022-11-01] MEDS: PRENATAL VITAMINS W/ FOLIC ACID TABLET (FP) PO SCH (09:59)
[2022-11-01] MEDS: NICOTINE 7 MG/24 HOURS TOPICAL PATCH TD PRN (09:59)
[2022-11-01] MEDS: THIAMINE HCL 100 MG TABLET (FP) PO SCH (21:24)
[2022-11-01] MEDS: ARIPiprazole 10 MG TABLET PO SCH (21:24)
[2022-11-01] MEDS: MELATONIN 5 MG TABLETS PO SCH (21:25)
[2022-11-02] MEDS: LEVOTHYROXINE 100 MCG, LEVOTHYROXINE 75 MCG PO SCH (05:55)
[2022-11-02] MEDS: SERTRALINE HCL 50 MG TABLET (FP) PO SCH (06:31)
[2022-11-02] MEDS: methaDONE HCL 40 MG DISPERSABLE TABLET PO SCH (06:31)
[2022-11-02] MEDS: NICOTINE 7 MG/24 HOURS TOPICAL PATCH TD PRN (09:52)
[2022-11-02] MEDS: NICOTINE 10 MG CARTRIDGE (INHALER) IH SCH (09:52)
[2022-11-02] MEDS: PRENATAL VITAMINS W/ FOLIC ACID TABLET (FP) PO SCH (09:52)
[2022-11-02] MEDS: NICOTINE POLACRILEX 2 MG GUM BUC PRN ×4 (09:53→21:17)
[2022-11-02] MEDS: THIAMINE HCL 100 MG TABLET (FP) PO SCH (21:17)
[2022-11-02] MEDS: ARIPiprazole 10 MG TABLET PO SCH (21:17)
[2022-11-02] MEDS: MELATONIN 5 MG TABLETS PO SCH (21:18)
[2022-11-03] MEDS: SERTRALINE HCL 50 MG TABLET (FP) PO SCH (05:58)
[2022-11-03] MEDS: methaDONE HCL 40 MG DISPERSABLE TABLET PO SCH (05:58)
[2022-11-03] MEDS: LEVOTHYROXINE 100 MCG, LEVOTHYROXINE 75 MCG PO SCH (05:58)
[2022-11-03 06:58] VITALS: BP 116/68; PULSE 53; TEMP 98.4
== END 2022-11-03 09:21 | disposition home or self-care (01) | DRG 772 ==
LOC: YASAS 11:59 → Y3W 15:12
PROVIDERS: ADMIT Allergy & Immunology; ATTEND Psychiatry & Neurology Pain Medicine
PROC: HZ42ZZZ Group Counseling for Substance Abuse Treatment, Cognitive-Behavioral (ICD-10-PCS; principal; 2022-10-06)
DX: F11.20 Opioid dependence, uncomplicated (principal); F10.20 Alcohol dependence, uncomplicated; F14.20 Cocaine dependence, uncomplicated; F17.210 Nicotine dependence, cigarettes, uncomplicated; F31.9 Bipolar disorder, unspecified; F25.9 Schizoaffective disorder, unspecified; F19.24 Other psychoactive substance dependence with psychoactive substance-induced mood disorder; E72.20 Disorder of urea cycle metabolism, unspecified; E03.9 Hypothyroidism, unspecified; I49.8 Other specified cardiac arrhythmias; J45.20 Mild intermittent asthma, uncomplicated; M54.50 Low back pain, unspecified; G89.29 Other chronic pain; R94.31 Abnormal electrocardiogram [ECG] [EKG]; Z86.19 Personal history of other infectious and parasitic diseases
CPT/HCPCS: 36415; 80053; 82140; 84443; 85025; 85610; 86803; 87522; C9803-CS; U0003; U0005

== ENCOUNTER 2024-04-16 11:21 | Inpatient (IN) | payer OTHER ==
[2024-04-16] MEDS ORDERED: DICYCLOMINE HCL 10 MG CAPSULE PO PRN (12:44)
[2024-04-16] MEDS ORDERED: NICOTINE POLACRILEX 2 MG GUM BUC PRN (12:44)
[2024-04-16] MEDS ORDERED: LOPERAMIDE HCL 2 MG CAPSULE PO PRN (12:44)
[2024-04-16] MEDS ORDERED: ONDANSETRON *ODT* 4 MG TABLET SL PRN (12:44)
[2024-04-16] MEDS ORDERED: POLYETHYLENE GLYCOL (HEALTHYLAX) 3350 17 GM PACKET PO PRN (12:44)
[2024-04-16] MEDS ORDERED: BISMUTH SUBSALICYLATE 262 MG/15 ML BTL PO PRN (12:44)
[2024-04-16] MEDS ORDERED: NALOXONE (NYS OPIOID OVERDOSE PROGRAM) 4 MG/0.1 ML SPRAY NS PRN (12:44)
[2024-04-16] MEDS ORDERED: MAGNESIUM HYDROX 2400MG/30ML ORAL SUSPENSION 30 ML CUP PO PRN (12:44)
[2024-04-16] MEDS ORDERED: BENZONATATE 200 MG CAPSULE PO PRN (12:44)
[2024-04-16] MEDS ORDERED: NICOTINE POLACRILEX 2 MG LOZENGE BC PRN (12:44)
[2024-04-16] MEDS ORDERED: guaiFENesin 600 MG TABLET.ER (FP) PO PRN (12:44)
[2024-04-16] MEDS ORDERED: IBUPROFEN 400 MG TABLET (FP) PO PRN (12:44)
[2024-04-16] MEDS ORDERED: MAG HYDROX/AL HYDROX/SIMETH 30 ML UNIT-DOSE CUP PO PRN (12:44)
[2024-04-16] MEDS ORDERED: BENZOCAINE/MENTHOL (CHLORASEPTIC ) LOZENGE MM PRN (12:44)
[2024-04-16] MEDS ORDERED: NALOXONE (NARCAN) HCL 4 MG/0.1 ML SPRAY NS PRN (12:44)
[2024-04-16 13:21] VITALS: BMI 23.5
[2024-04-16] MEDS: FLU VACCINE (FLULAVAL) PF 45 MCG/0.5 ML SYRINGE 2024-2025 IM ONE (14:20)
[2024-04-16] MEDS: PNEUMOC 20-VAL CONJ-DIP CRM/PF 0.5 ML SYRINGE IM ONE (14:21)
[2024-04-16] MEDS: IBUPROFEN 600 MG TABLET (FP) PO PRN (14:31)
[2024-04-16] MEDS: hydrOXYzine PAMOATE 25 MG CAPSULE (FP) PO PRN (14:31)
[2024-04-16] MEDS: METHOCARBAMOL 500 MG TABLET PO PRN (22:39)
[2024-04-16] MEDS: MELATONIN 5 MG TABLETS PO SCH (22:39)
[2024-04-16] MEDS: THIAMINE 100 MG TABLET PO SCH (22:39)
[2024-04-17] MEDS: LEVOTHYROXINE 100 MCG, LEVOTHYROXINE 75 MCG PO SCH (05:26)
[2024-04-17] MEDS ORDERED: LEVOTHYROXINE NA 25 MCG TABLET (FP) PO SCH (06:00)
[2024-04-17] MEDS ORDERED: BUPRENORPHINE HCL 150 MCG, BUPRENORPHINE HCL 75 MCG BC PRN (10:02)
[2024-04-17] MEDS: PRENATAL VITAMINS W/ FOLIC ACID TABLET (FP) PO SCH (10:22)
[2024-04-17] MEDS: NICOTINE 21 MG/24 HOURS TOPICAL PATCH TD SCH (11:11)
[2024-04-17] MEDS: cloNIDine HCL 0.1 MG TABLET PO ONE (11:11)
[2024-04-17] MEDS: BUPRENORPHINE HCL 150 MCG, BUPRENORPHINE HCL 75 MCG BC ONE (11:11)
[2024-04-17 11:22] LABS: HEMOGLOBIN 14.9 GM/dL (11.7-16.9); MCHC 32.5 g/dl (32.0-35.9); MEAN CELL VOLUME 95.3 fl (80-96); MEAN PLT VOLUME 9.2 fl (7.5-11.1); PLATELET COUNT 252 10^3/uL (134-434); RBC 4.82 M/mm3 (4.00-5.60); RDW 15.4 % (11.9-15.9); WHITE BLOOD COUNT 16.9 K/mm3 (4.0-10.0)
[2024-04-17 11:27] LABS: POTASSIUM 3.9 mmol/L (3.5-5.1)
[2024-04-17 11:40] LABS: CALCIUM 9.7 mg/dL (8.5-10.1)
[2024-04-17 11:46] LABS: BILIRUBIN,TOTAL 0.8 mg/dL (0.2-1); TOT PROT 7.5 g/dl (6.4-8.2)
[2024-04-17] MEDS: BUDESONIDE/FORMETEROL FUMARATE 80/4.5 mcg INHALER IH SCH (12:03)
[2024-04-17] MEDS ORDERED: cloNIDine HCL 0.1 MG TABLET PO PRN (14:03)
[2024-04-17] MEDS: diazePAM 5 MG TABLET PO PRN (22:09)
[2024-04-17] MEDS: ARIPiprazole 10 MG TABLET PO SCH (22:11)
[2024-04-18] MEDS ORDERED: BUPRENORPHINE HCL 150 MCG, BUPRENORPHINE HCL 75 MCG BC PRN
[2024-04-18] MEDS: NAPROXEN 250 MG TABLET PO ONE (02:40)
[2024-04-18] MEDS: BUPRENORPHINE HCL 150 MCG, BUPRENORPHINE HCL 75 MCG BC SCH (05:33)
[2024-04-18] MEDS: SERTRALINE HCL 50 MG TABLET (FP) PO SCH (09:29)
[2024-04-18 12:21] LABS: BASO % 0.3 % (0-2.0); EOS % 1.4 % (0-4.5); HEMATOCRIT 41.4 % (35.4-49); HEMOGLOBIN 13.7 GM/dL (11.7-16.9); LYMPH % 19.6 % (8-40); MCH 31.2 pg (25.7-33.7); MCHC 33.1 g/dl (32.0-35.9); MEAN CELL VOLUME 94.2 fl (80-96); MEAN PLT VOLUME 8.9 fl (7.5-11.1); MONO % 6.2 % (3.8-10.2); NEUT % 72.5 % (42.8-82.8); PLATELET COUNT 190 10^3/uL (134-434); RBC 4.39 M/mm3 (4.00-5.60); RDW 15.1 % (11.9-15.9)
[2024-04-18 12:28] LABS: POTASSIUM 4.1 mmol/L (3.5-5.1)
[2024-04-18 12:30] LABS: BLOOD UREA NITROGEN 19.9 mg/dL (7-18)
[2024-04-18 12:31] LABS: ALBUMIN 3.3 g/dl (3.4-5.0)
[2024-04-18 12:34] LABS: CREATININE 0.8 mg/dL (0.55-1.3)
[2024-04-18 12:35] LABS: BILIRUBIN,TOTAL 0.3 mg/dL (0.2-1); TOT PROT 6.4 g/dl (6.4-8.2)
[2024-04-18] MEDS: METHOCARBAMOL 500 MG TABLET PO PRN (14:59)
[2024-04-18] MEDS: NAPROXEN 500 MG TABLET PO SCH (21:22)
[2024-04-19] MEDS: BUPRENORPHINE HCL 450 MCG FILM BC SCH (05:21)
[2024-04-19] MEDS: ACETAMINOPHEN 325 MG TABLET (FP) PO PRN (07:47)
[2024-04-20] MEDS: BUPRENORPHINE/NALOXONE 4 MG/1 MG FILM PACKET SL SCH (05:37)
[2024-04-21] MEDS: BUPRENORPHINE/NALOXONE 8 MG/2 MG FILM PACKET SL ONE (05:34)
[2024-04-21 09:31] VITALS: BP 128/78; PULSE 69; RESP 17; TEMP 97.4
== END 2024-04-21 11:14 | disposition other institution (70) | DRG 773 ==
LOC: YASAS 11:21 → Y3N 13:09
PROVIDERS: ADMIT Allergy & Immunology; ATTEND Surgery
PROC: HZ2ZZZZ Detoxification Services for Substance Abuse Treatment (ICD-10-PCS; principal; 2024-04-16)
DX: F11.23 Opioid dependence with withdrawal (principal); F14.20 Cocaine dependence, uncomplicated; F17.210 Nicotine dependence, cigarettes, uncomplicated; F31.9 Bipolar disorder, unspecified; F20.9 Schizophrenia, unspecified; E03.9 Hypothyroidism, unspecified; M54.50 Low back pain, unspecified; G89.29 Other chronic pain; R94.31 Abnormal electrocardiogram [ECG] [EKG]; Z59.00 Homelessness unspecified
CPT/HCPCS: 36415; 80053; 80305; 80307; 85025; 85027; 86780; 87811; 90656; 90677; 93005; 93010; G0008; G0009

== ENCOUNTER 2024-04-21 11:48 | Inpatient (IN) | payer OTHER ==
[2024-04-21] MEDS ORDERED: MAG HYDROX/AL HYDROX/SIMETH 30 ML UNIT-DOSE CUP PO PRN (15:11)
[2024-04-21] MEDS ORDERED: IBUPROFEN 400 MG TABLET (FP) PO PRN (15:11)
[2024-04-21] MEDS ORDERED: guaiFENesin 600 MG TABLET.ER (FP) PO PRN (15:11)
[2024-04-21] MEDS ORDERED: BENZONATATE 200 MG CAPSULE PO PRN (15:11)
[2024-04-21] MEDS ORDERED: BENZOCAINE/MENTHOL (CHLORASEPTIC ) LOZENGE MM PRN (15:11)
[2024-04-21] MEDS ORDERED: MAGNESIUM HYDROX 2400MG/30ML ORAL SUSPENSION 30 ML CUP PO PRN (15:11)
[2024-04-21] MEDS ORDERED: NALOXONE HCL 0.4 MG/ML VIAL IVPUSH PRN (15:11)
[2024-04-21] MEDS ORDERED: POLYETHYLENE GLYCOL (HEALTHYLAX) 3350 17 GM PACKET PO PRN (15:11)
[2024-04-21] MEDS ORDERED: NALOXONE (NARCAN) HCL 4 MG/0.1 ML SPRAY NS PRN (15:11)
[2024-04-21] MEDS ORDERED: LOPERAMIDE HCL 2 MG CAPSULE PO PRN (15:11)
[2024-04-21] MEDS: ACETAMINOPHEN 325 MG TABLET (FP) PO PRN (15:58)
[2024-04-21] MEDS: THIAMINE 100 MG TABLET PO SCH (21:16)
[2024-04-21] MEDS: BUDESONIDE/FORMETEROL FUMARATE 80/4.5 mcg INHALER IH SCH (21:16)
[2024-04-21] MEDS: MELATONIN 5 MG TABLETS PO SCH (21:16)
[2024-04-21] MEDS: IBUPROFEN 600 MG TABLET (FP) PO PRN (21:18)
[2024-04-21] MEDS: METHOCARBAMOL 500 MG TABLET PO PRN (21:19)
[2024-04-22] MEDS: LEVOTHYROXINE 100 MCG, LEVOTHYROXINE 75 MCG PO SCH (05:26)
[2024-04-22] MEDS ORDERED: LEVOTHYROXINE NA 25 MCG TABLET (FP) PO SCH (06:00)
[2024-04-22] MEDS: PRENATAL VITAMINS W/ FOLIC ACID TABLET (FP) PO SCH (09:27)
[2024-04-22] MEDS: BUPRENORPHINE/NALOXONE 8 MG/2 MG FILM PACKET SL SCH (09:28)
[2024-04-22] MEDS: NAPROXEN 500 MG TABLET PO SCH (10:03)
[2024-04-22] MEDS: SERTRALINE HCL 50 MG TABLET (FP) PO SCH (10:03)
[2024-04-22] MEDS: NICOTINE POLACRILEX 2 MG GUM BUC PRN (15:34)
[2024-04-22] MEDS: ARIPiprazole 10 MG TABLET PO SCH (21:33)
[2024-04-23] MEDS: NICOTINE 21 MG/24 HOURS TOPICAL PATCH TD SCH (11:07)
[2024-04-25] MEDS: hydrOXYzine PAMOATE 25 MG CAPSULE (FP) PO PRN (14:01)
[2024-04-25] MEDS: BUPRENORPHINE 8 MG TAB.SUBL SL SCH (18:03)
[2024-04-25] MEDS: BACLOFEN 10 MG TABLET (FP) PO SCH (21:32)
[2024-04-26 11:51] LABS: POTASSIUM 4.5 mmol/L (3.5-5.1)
[2024-04-26 11:53] LABS: BLOOD UREA NITROGEN 25.9 mg/dL (7-18); CALCIUM 9.2 mg/dL (8.5-10.1)
[2024-04-26 11:56] LABS: CREATININE 0.9 mg/dL (0.55-1.3)
[2024-04-26 11:58] LABS: BILIRUBIN,TOTAL 0.4 mg/dL (0.2-1); TOT PROT 7.2 g/dl (6.4-8.2)
[2024-04-26] MEDS: LIDOCAINE 4% PATCH TP SCH (17:30)
[2024-04-26] MEDS: LIDOCAINE PATCH REMOVAL MC SCH (21:23)
[2024-04-27] MEDS: LEVOTHYROXINE NA 100 MCG TABLET (FP) PO SCH (06:04)
[2024-04-29 07:04] VITALS: BP 124/81; PULSE 64; RESP 18; TEMP 97.6
== END 2024-04-29 21:20 | disposition left against medical advice (07) | DRG 772 ==
LOC: YASAS 11:48 → Y3NR 11:50 → Y5N 04-22 11:06
PROVIDERS: ADMIT Surgery; ATTEND Psychiatry & Neurology Pain Medicine
PROC: HZ42ZZZ Group Counseling for Substance Abuse Treatment, Cognitive-Behavioral (ICD-10-PCS; principal; 2024-04-21)
DX: F11.20 Opioid dependence, uncomplicated (principal); F10.20 Alcohol dependence, uncomplicated; F17.210 Nicotine dependence, cigarettes, uncomplicated; F20.9 Schizophrenia, unspecified; F31.9 Bipolar disorder, unspecified; E03.9 Hypothyroidism, unspecified; J44.9 Chronic obstructive pulmonary disease, unspecified; M25.561 Pain in right knee; F91.8 Other conduct disorders; Z91.199 Patient's noncompliance with other medical treatment and regimen due to unspecified reason
CPT/HCPCS: 36415; 80053; 82140; 84439; 84443; 86803; 87522; J0475